=== PATIENT | female | born 1985 | race American Indian/Alaskan Native ===

== ENCOUNTER 2017-06-18 20:43 | Emergency (ER) | payer MEDICAID ==
[2017-06-18 22:33] VITALS: BP 143/77
[2017-06-18 22:54] LABS: Basophils % (Auto) 0.5 % (0.0-1.8); Eosinophils # (Auto) 0.4 K/mm3 (0.0-0.4); Hematocrit 31.9 % (30.3-42.9); Hemoglobin 10.1 gm/dl (10.1-14.3); Lymphocytes # (Auto) 3.3 K/mm3 (1.2-5.4); Lymphocytes % (Auto) 39.3 % (13.4-35.0); Mean Corpuscular HGB Conc 32 % (30-34); Mean Corpuscular Volume 80 fl (79-97); Monocytes # (Auto) 0.3 K/mm3 (0.0-0.8); Monocytes % (Auto) 3.8 % (0.0-7.3); Platelet Count 336 K/mm3 (140-440); Red Blood Count 3.98 M/mm3 (3.65-5.03); Red Cell Distribution Width 17.5 % (13.2-15.2)
[2017-06-18 22:55] LABS: Mean Corpuscular Hemoglobin 25 pg (28-32)
[2017-06-18 23:13] LABS: BUN/Creatinine Ratio 20; Blood Urea Nitrogen 12 mg/dL (7-17); Calcium 8.3 mg/dL (8.4-10.2); Hemolysis Index 4
--- NOTE | 2017-06-18 23:44 | XRay Report ---
FINAL REPORT PROCEDURE: XR HAND 2V LT TECHNIQUE: LEFT hand radiographs, AP and lateral views. CPT 46187-RL HISTORY: pain left hand COMPARISON: No prior studies are available for comparison. FINDINGS: Fracture (s) and/or Dislocation(s): None . Alignment: Normal . Joint space(s): Narrowing of the 5th distal interphalangeal joint is noted with osteophyte formation.. Soft tissues: Normal . Bone mineralization: Normal . Foreign bodies: None . 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
== END 2017-06-19 04:40 | disposition left against medical advice (07) ==
LOC: ED 20:43
DX: R20.0 Anesthesia of skin (principal); Z53.21 Procedure and treatment not carried out due to patient leaving prior to being seen by health care provider
CPT/HCPCS: 36415; 80048; 84703; 85025

== ENCOUNTER 2020-03-14 13:35 | Emergency (ER) | payer MEDICAID ==
[2020-03-14 14:01] VITALS: BP 157/80
--- NOTE | 2020-03-14 14:01 | Event Note ---
ED Screening Note Date of service: 03/14/20 Time: 14:00 ED Screening Note: Complains of left lower abdominal pain x12 hours States nausea vomiting and diarrhea Denies dysuria or hematochezia States cycle started today This initial assessment/diagnostic orders/clinical plan/treatment(s) is/are subject to change based on patients health status, clinical progression and re- assessment by fellow clinical providers in the ED. Further treatment and workup at subsequent clinical providers discretion. Patient/guardian urged not to elope from the ED as their condition may be serious if not clinically assessed and managed. Initial orders include: Labs
[2020-03-14 16:11] LABS: Basophils % (Auto) 0.5 % (0.0-1.8); Eosinophils # (Auto) 0.2 K/mm3 (0.0-0.4); Eosinophils % (Auto) 1.6 % (0.0-4.3); Lymphocytes # (Auto) 2.2 K/mm3 (1.2-5.4); Lymphocytes % (Auto) 21.9 % (13.4-35.0); Mean Corpuscular HGB Conc 29 % (30-34); Monocytes # (Auto) 0.5 K/mm3 (0.0-0.8); Monocytes % (Auto) 4.7 % (0.0-7.3); Platelet Count 247 K/mm3 (140-440); Red Blood Count 4.01 M/mm3 (3.65-5.03)
[2020-03-14 16:16] LABS: Hematocrit 25.6 % (30.3-42.9); Hemoglobin 7.5 gm/dl (10.1-14.3); Mean Corpuscular Volume 64 fl (79-97)
[2020-03-14 16:17] LABS: Red Cell Distribution Width 21.4 % (13.2-15.2)
[2020-03-14 16:31] LABS: Alanine Aminotransferase 11 units/L (7-56); Albumin 3.8 g/dL (3.9-5); Blood Urea Nitrogen 4 mg/dL (7-17); Calcium 9.1 mg/dL (8.4-10.2); Hemolysis Index 2
[2020-03-14 16:32] LABS: BUN/Creatinine Ratio 7
[2020-03-14 17:26] LABS: Bacteria,Urine 1+ /HPF (Negative); Bilirubin,Urine NEG (Negative); Blood,Urine LG (Negative); Color,Urine Yellow (Yellow); Protein,Urine <15 mg/dL mg/dL (Negative); Urobilinogen,Urine < 2.0 mg/dL (<2.0)
[2020-03-14 17:28] LABS: RBC,Urine > 182.0 /HPF (0.0-6.0)
[2020-03-14] MEDS ORDERED: KETOROLAC 30 MG/1 ML INJ IV ONE (20:41)
[2020-03-14] MEDS ORDERED: ONDANSETRON 4 MG/2 ML INJ IV ONE (20:41)
[2020-03-14] MEDS ORDERED: SODIUM CHLORIDE 0.9% 1000 ML 1,000 ML IV ONE (20:41)
--- NOTE | 2020-03-14 21:22 | Emergency Department Report ---
ED N/V/D HPI - General Chief complaint: Abdominal Pain Stated complaint: ABD PAIN Time Seen by Provider: 03/14/20 13:58 Source: patient Mode of arrival: Ambulatory Limitations: No Limitations - History of Present Illness Initial comments: Patient is a 34-year-old F [place] female with a past medical history of heavy menses who is presenting with nausea vomiting diarrhea for the past 12 hours. Patient states she has been unable to keep anything down. Diarrhea is mild. Patient states she is under sure what is causing the symptoms. She does not re member eating anything abnormal and has never had this issue in the past. Patient states she did have what she believes was abscessed tooth for the past 3 days which is now subsided. She is not sure if this may have had something to do with her symptoms. Patient with some left lower quadrant pain which is crampy in nature Patient also states she is on her menses currently. She has a history several blood transfusions in the past. Patient states she has large clots that she is passing. Patient is denying any weakness syncope or near syncope. - Related Data Previous Rx's Medication Instructions Recorded Last Taken Type Docusate Sodium [Colace] 100 mg PO BID #30 capsule 03/15/20 Unknown Rx Ferrous Sulfate [Ferrous Sulfate 324 mg PO BID #30 tablet. 03/15/20 Unknown Rx 324 MG] Ketorolac [Toradol] 10 mg PO Q6H PRN #12 tablet 03/15/20 Unknown Rx Nitrofurantoin Imperial/M-Cryst 100 mg PO Q12HR #14 capsule 03/15/20 Unknown Rx [Macrobid CAP] Ondansetron [Zofran Odt] 4 mg PO Q8HR #10 tab.rapdis 03/15/20 Unknown Rx traMADoL [Ultram] 50 mg PO Q6HR PRN #12 tablet 03/15/20 Unknown Rx Allergies Allergy/AdvReac Type Severity Reaction Status Date / Time No Known Allergies Allergy Unverified 06/18/17 22:33 ED Review of Systems ROS: Stated complaint: ABD PAIN Other details as noted in HPI Comment: All other systems reviewed and negative ED Past Medical Hx - Past Medical History Previous Medical History?: Yes Hx Hypertension: Yes - Surgical History Past Surgical History?: Yes Additional Surgical History: left hand surgery as a child. - Social History Smoking Status: Current Every Day Smoker Substance Use Type: None - Medications Home Medications: Home Medications Medication Instructions Recorded Confirmed Last Taken Type Docusate Sodium [Colace] 100 mg PO BID #30 capsule 03/15/20 Unknown Rx Ferrous Sulfate [Ferrous Sulfate 324 mg PO BID #30 tablet.dr 03/15/20 Unknown Rx 324 MG] Ketorolac [Toradol] 10 mg PO Q6H PRN #12 tablet 03/15/20 Unknown Rx Nitrofurantoin Imperial/M-Cryst 100 mg PO Q12HR #14 capsule 03/15/20 Unknown Rx [Macrobid CAP] Ondansetron [Zofran Odt] 4 mg PO Q8HR #10 tab.rapdis 03/15/20 Unknown Rx traMADoL [Ultram] 50 mg PO Q6HR PRN #12 tablet 03/15/20 Unknown Rx ED Physical Exam - General Limitations: No Limitations General appearance: alert, in no apparent distress - Head Head exam: Present: atraumatic, normocephalic - Eye Eye exam: Present: normal appearance - ENT ENT exam: Present: mucous membranes moist - Neck Neck exam: Present: normal inspection - Respiratory Respiratory exam: Present: normal lung sounds bilaterally. Absent: respiratory distress, wheezes, rales, rhonchi - Cardiovascular Cardiovascular Exam: Present: regular rate, normal rhythm, normal heart sounds. Absent: systolic murmur, diastolic murmur, rubs, gallop - GI/Abdominal GI/Abdominal exam: Present: soft, tenderness (LLQ pain), normal bowel sounds. Absent: distended, guarding, rebound - Extremities Exam Extremities exam: Present: normal inspection - Back Exam Back exam: Present: normal inspection - Neurological Exam Neurological exam: Present: alert, oriented X3 - Psychiatric Psychiatric exam: Present: normal affect, normal mood - Skin Skin exam: Present: warm, dry, intact, normal color. Absent: rash ED Course Vital Signs 03/14/20 13:59 Temperature 98.4 F Pulse Rate 95 H Respiratory 18 Rate Blood Pressure 157/80 [Right] O2 Sat by Pulse 100 Oximetry - Reevaluation(s) Reevaluation #1: 03/14/20 23:[address] shows a 6-1/2 cm mass in between the left ovary and uterus. Unable to differentiate what this mass is with CT. Ultrasound was recommended. 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 Spoke with the patient about pain in the left lower quadrant she states is definitely worse over the last 2 days that she has had the nausea vomiting diarrhea however she states she has had some discomfort in this area potentially 6 months. Patient was given the option to get ultrasound as an outpatient or here in the emergency department she stated she would rather obtain this ultrasound today to see how serious the mass appears. Patient does not have a commercial real estate assistant for quick follow-up. ED Medical Decision Making - Lab Data Result diagrams: 03/14/20 15:38 03/14/20 15:38 Lab Results 03/14/20 03/14/20 03/14/20 Range/Units 15:38 15:38 15:38 WBC 10.2 (4.5-11.0) K/mm3 RBC 4.01 (3.65-5.03) M/mm3 Hgb 7.5 L (10.1-14.3) gm/dl Hct 25.6 L (30.3-42.9) % MCV 64 L (79-97) fl MCH 19 L (28-32) pg MCHC 29 L (30-34) % RDW 21.4 H (13.2-15.2) % Plt Count 247 (140-440) K/mm3 Lymph % (Auto) 21.9 (13.4-35.0) % Imperial % (Auto) 4.7 (0.0-7.3) % Eos % (Auto) 1.6 (0.0-4.3) % Baso % (Auto) 0.5 (0.0-1.8) % Lymph # (Auto) 2.2 (1.2-5.4) K/mm3 Imperial # (Auto) 0.5 (0.0-0.8) K/mm3 Eos # (Auto) 0.2 (0.0-0.4) K/mm3 Baso # (Auto) 0.0 (0.0-0.1) K/mm3 Seg Neutrophils % 71.3 H (40.0-70.0) % Seg Neutrophils # 7.3 (1.8-7.7) K/mm3 Sodium 136 L (137-145) mmol/L Potassium 4.0 (3.6-5.0) mmol/L Chloride 102.9 (98-107) mmol/L Carbon Dioxide 24 (22-30) mmol/L Anion Gap 13 mmol/L BUN 4 L (7-17) mg/dL Creatinine 0.6 (0.6-1.2) mg/dL Estimated GFR > 60 ml/min BUN/Creatinine Ratio 7 % Glucose 115 H (65-100) mg/dL Calcium 9.1 (8.4-10.2) mg/dL Total Bilirubin 0.30 (0.1-1.2) mg/dL AST 15 (5-40) units/L ALT 11 (7-56) units/L Alkaline Phosphatase 58 (35-129) units/L Total Protein 8.5 H (6.3-8.2) g/dL Albumin 3.8 L (3.9-5) g/dL Albumin/Globulin Ratio 0.8 % HCG, Quant < 2 (0-4) mIU/mL Urine Color (Yellow) Urine Turbidity (Clear) Urine pH (5.0-7.0) Ur Specific Tell (1.003-1.030) Urine Protein (Negative) mg/dL Urine Glucose (UA) (Negative) mg/dL Urine Ketones (Negative) mg/dL Urine Blood (Negative) Urine Nitrite (Negative) Urine Bilirubin (Negative) Urine Urobilinogen (<2.0) mg/dL Ur Leukocyte Esterase (Negative) Urine WBC (Auto) (0.0-6.0) /HPF Urine RBC (Auto) (0.0-6.0) /HPF U Epithel Cells (Auto) (0-13.0) /HPF Urine Bacteria (Auto) (Negative) /HPF Urine Yeast (Budding) /HPF 03/14/20 Range/Units Unknown WBC (4.5-11.0) K/mm3 RBC (3.65-5.03) M/mm3 Hgb (10.1-14.3) gm/dl Hct (30.3-42.9) % MCV (79-97) fl MCH (28-32) pg MCHC (30-34) % RDW (13.2-15.2) % Plt Count (140-440) K/mm3 Lymph % (Auto) (13.4-35.0) % Imperial % (Auto) (0.0-7.3) % Eos % (Auto) (0.0-4.3) % Baso % (Auto) (0.0-1.8) % Lymph # (Auto) (1.2-5.4) K/mm3 Imperial # (Auto) (0.0-0.8) K/mm3 Eos # (Auto) (0.0-0.4) K/mm3 Baso # (Auto) (0.0-0.1) K/mm3 Seg Neutrophils % (40.0-70.0) % Seg Neutrophils # (1.8-7.7) K/mm3 Sodium (137-145) mmol/L Potassium (3.6-5.0) mmol/L Chloride (98-107) mmol/L Carbon Dioxide (22-30) mmol/L Anion Gap mmol/L BUN (7-17) mg/dL Creatinine (0.6-1.2) mg/dL Estimated GFR ml/min BUN/Creatinine Ratio % Glucose (65-100) mg/dL Calcium (8.4-10.2) mg/dL Total Bilirubin (0.1-1.2) mg/dL AST (5-40) units/L ALT (7-56) units/L Alkaline Phosphatase (35-129) units/L Total Protein (6.3-8.2) g/dL Albumin (3.9-5) g/dL Albumin/Globulin Ratio % HCG, Quant (0-4) mIU/mL Urine Color Yellow (Yellow) Urine Turbidity Clear (Clear) Urine pH 6.0 (5.0-7.0) Ur Specific Tell 1.009 (1.003-1.030) Urine Protein <15 mg/dl (Negative) mg/dL Urine Glucose (UA) Neg (Negative) mg/dL Urine Ketones Neg (Negative) mg/dL Urine Blood Lg (Negative) Urine Nitrite Neg (Negative) Urine Bilirubin Neg (Negative) Urine Urobilinogen < 2.0 (<2.0) mg/dL Ur Leukocyte Esterase Tr (Negative) Urine WBC (Auto) 11.0 H (0.0-6.0) /HPF Urine RBC (Auto) > 182.0 (0.0-6.0) /HPF U Epithel Cells (Auto) < 1.0 (0-13.0) /HPF Urine Bacteria (Auto) 1+ (Negative) /HPF Urine Yeast (Budding) 2+ /HPF - Radiology Data [facility] [address] [place] [address] Cat Scan Report Signed Patient: WHITE,TWNIKKA MR#: [id number] 5 : 1985 Acct:[id number] Age/Sex: 34 / F ADM Date: 03/14/20 Loc: ED Attending Dr: Ordering Physician: REBECA CARPIO MD Date of Service: 03/14/20 Procedure(s): CT abdomen pelvis w con Accession Number(s): [id number] cc: REBECA CARPIO MD CT abdomen pelvis w con INDICATION / CLINICAL INFORMATION: LLQ pain NVD. TECHNIQUE: Axial CT imaging of abdomen and pelvis was obtained with IV contrast. Coronal and sagittal reformatted imaging obtained and reviewed. All CT scans at this location are performed using CT dos e reduction for ALARA by means of automated exposure control. COMPARISON: None FINDINGS: CT abdomen with contrast demonstrates normal appearance of the liver, spleen, pancreas, kidneys, and adrenal glands. Gallbladder is unremarkable. No biliary dilatation. CT pelvis with contrast demonstrates normal appearance of the appendix. The uterus is enlarged. There are a few small uterine masses present consistent with fibroids. Endometrium appears thickened. Of concern is the appearance of the left adnexa. There is soft tissue masslike entity in the left adnexa contiguous with the uterus measuring approximately 6.5 cm. The left ovary is visualized and appears to be separate from this mass making this most likely uterine in etiology. No free fluid. GI tract is grossly unremarkable. Visualized lung bases are clear. No acute osseous abnormality. IMPRESSION: 1. Abnormal appearance of the uterus/left adnexal region. There is a 6.5 cm masslike entity within the left adnexa that will need further evaluation with pelvic ultrasound. I see the left ovary separate from this mass. Recommend further evaluation with pelvic ultrasound. 2. No other significant finding. Signer Name: Zakia Daugherty MD Signed: 03/14/2020 10:48 PM Workstation Name: [id number] Transcribed By: Dictated By: Zakia Daugherty MD Electronically Authenticated By: Zakia Daugherty MD Signed Date/Time: 03/14/20 2248 [facility] [address] [place] [address] Ultrasound Report Signed Patient: MIGUELINA CHOU MR#: [id number] 5 : 1985 Acct:[id number] Age/Sex: 34 / F ADM Date: 03/14/20 Loc: ED Attending Dr: Ordering Physician: REBECA CARPIO MD Date of Service: 03/14/20 Procedure(s): US pelvic complete Accession Number(s): [id number] cc: REBECA CARPIO MD ULTRASOUND PELVIS INDICATION / CLINICAL INFORMATION: left adnexal mass. TECHNIQUE: Transabdominal. Duplex Color Doppler used: Yes. COMPARISON: CT abdomen/pelvis, 03/14/2020 FINDINGS: UTERUS: The uterus measures 11.1 x 6.5 x 8.4 cm. Endometrial complex is thickened measuring 2 cm. There is fullness in the left side of the uterus without discernible discrete mass. This would correlate with fullness seen on CT scan presumably representing 6.3 cm fibroid. Transvaginal exam was not performed which probably would have evaluated this region better then transabdominal alone. RIGHT ADNEXA: No significant ovarian cyst or mass. Normal color Doppler blood flow. LEFT ADNEXA: No significant ovarian cyst or mass. Normal color Doppler blood flow. URINARY BLADDER: No significant abnormality. FREE FLUID: None. ADDITIONAL FINDINGS: None. IMPRESSION: 1. Uterine enlargement without discernible discrete mass identified. Although no definite sonographic correlate was identified to account for the 6.3 cm mass identified in the left adnexa CT, the most likely etiology would be the presence of uterine fibroid that was not well imaged on transabdominal pelvic ultrasound. 2. Thickened endometrium, measuring 2.0 cm 3. Both ovaries are visualized and appear unremarkable.. Signer Name: Zakia Daugherty MD Signed: 03/15/2020 12:40 AM Workstation Name: [id number] - Medical Decision Making Patient was given Zofran for her nausea and Toradol for pain she is feeling much better. CT was suggestive of some type of mass in the left adnexa. Ultrasound confirmed this was actually a fibroid. Is also lends itself to why the patient continues to get heavy bleeding during her menses. Patient be referred to [facility]. Start the patient on iron therapy for her anemia. Patient given medications for symptomatic relief. She will be started on Provera for heavy periods. Critical care attestation.: If time is entered above; I have spent that time in minutes in the direct care of this critically ill patient, excluding procedure time. ED Disposition Clinical Impression: Gastroenteritis, Symptomatic anemia, Fibroids, Dysmenorrhea, UTI (urinary tract infection) Disposition: TO HOME OR SELFCARE Is pt being admited?: No Does the pt Need Aspirin: No Condition: Stable Instructions: Viral Gastroenteritis, Adult, Uterine Fibroids, [id number], Urinary Tract Infection, Adult, Dysmenorrhea, Abdominal Pain (ED) Prescriptions: Docusate Sodium [Colace] 100 mg PO BID #30 capsule Ferrous Sulfate [Ferrous Sulfate 324 MG] 324 mg PO BID #30 tablet. Nitrofurantoin Imperial/M-Cryst [Macrobid CAP] 100 mg PO Q12HR #14 capsule Ketorolac [Toradol] 10 mg PO Q6H PRN #12 tablet PRN Reason: Pain traMADoL [Ultram] 50 mg PO Q6HR PRN #12 tablet PRN Reason: Pain Ondansetron [Zofran Odt] 4 mg PO Q8HR #10 tab.rapdis Referrals: NICHELLE EVANS MD [Staff Physician] - 3-5 Days Time of Disposition: 01:04
--- NOTE | 2020-03-14 22:52 | Cat Scan Report ---
CT abdomen pelvis w con INDICATION / CLINICAL INFORMATION: LLQ pain NVD. TECHNIQUE: Axial CT imaging of abdomen and pelvis was obtained with IV contrast. Coronal and sagittal reformatte d imaging obtained and reviewed. All CT scans at this location are performed using CT dose reduction for ALARA by means of automated exposure control. COMPARISON: None FINDINGS: CT abdomen with contrast demonstrates normal appearance of the liver, spleen, pancreas, kidneys, and adrenal glands. Gallbladder is unremarkable. No biliary dilatation. CT pelvis with contrast demonstrates normal appearance of the appendix. The uterus is enlarged. There are a few small uterine masses present consistent with fibroids. Endometrium appears thickened. Of c oncern is the appearance of the left adnexa. There is soft tissue masslike entity in the left adnexa contiguous with the uterus measuring approximately 6.5 cm. The left ovary is visualized and appears t o be separate from this mass making this most likely uterine in etiology. No free fluid. GI tract is grossly unremarkable. Visualized lung bases are clear. No acute osseous abnormality. IMPRESSION: 1. Abnormal appearance of the uterus/left adnexal region. There is a 6.5 cm masslike entity within th e left adnexa that will need further evaluation with pelvic ultrasound. I see the left ovary separate from this mass. Recommend further evaluation with pelvic ultrasound. 2. No other significant finding. Signer Name: Zakia Daugherty MD Signed: 03/14/2020 10:48 PM Workstation Name: [id number]
--- NOTE | 2020-03-15 00:45 | Ultrasound Report ---
ULTRASOUND PELVIS INDICATION / CLINICAL INFORMATION: left adnexal mass. TECHNIQUE: Transabdominal. Duplex Color Doppler used: Yes. COMPARISON: CT abdomen/pelvis, 03/14/2020 FINDINGS: UTERUS: The uterus measures 11.1 x 6.5 x 8.4 cm. Endometrial complex is thickened measuring 2 cm. The re is fullness in the left side of the uterus without discernible discrete mass. This would correlate with fullness seen on CT scan presumably representing 6.3 cm fibroid. Transvaginal exam was not perf ormed which probably would have evaluated this region better then transabdominal alone. RIGHT ADNEXA: No significant ovarian cyst or mass. Normal color Doppler blood flow. LEFT ADNEXA: No significant ovarian cyst or mass. Normal color Doppler blood flow. URINARY BLADDER: No significant abnormality. FREE FLUID: None. ADDITIONAL FINDINGS: None. IMPRESSION: 1. Uterine enlargement without discernible discrete mass identified. Although no definite sonographic correlate was identified to account for the 6.3 cm mass identified in the left adnexa CT, the most l ikely etiology would be the presence of uterine fibroid that was not well imaged on transabdominal pe lvic ultrasound. 2. Thickened endometrium, measuring 2.0 cm 3. Both ovaries are visualized and appear unremarkable.. Signer Name: Zakia Daugherty MD Signed: 03/15/2020 12:40 AM Workstation Name: [id number]
== END 2020-03-15 01:15 | disposition home or self-care (01) ==
LOC: ED 13:35
DX: K52.9 Noninfective gastroenteritis and colitis, unspecified (principal); N39.0 Urinary tract infection, site not specified; N94.6 Dysmenorrhea, unspecified; D21.9 Benign neoplasm of connective and other soft tissue, unspecified; R11.2 Nausea with vomiting, unspecified; D64.89 Other specified anemias; I10 Essential (primary) hypertension; F17.200 Nicotine dependence, unspecified, uncomplicated; Z98.890 Other specified postprocedural states; Z79.899 Other long term (current) drug therapy
CPT/HCPCS: 36415; 74177; 76856; 80053; 81001; 84702; 85025; 87086; 96361; 96374; 96375; 99284; J1885; J2405; J7030; Q9967